=== PATIENT | female | born 1975 | race Caucasian/White ===

== ENCOUNTER 2018-02-04 09:01 | Emergency (ER) | payer OTHER ==
--- NOTE | 2018-02-04 09:34 | ED Physician Documentation ---
PD HPI UPPER EXT INJURY - Stated complaint Stated Complaint: SHOULDER PX - Chief complaint Chief Complaint: Ext Problem - History obtained from History obtained from: Patient - History of Present Illness Location: Right, Shoulder Type of injury: Other (Strenuous use.) Where injury occurred: Work Timing - onset: How many days ago (8) Timing - duration: Days (8) Timing - details: Still present Worsened by: Moving, Palpating Associated symptoms: No: Weakness, Numbness Similar symptoms before: Has not had sx before - Additonal information Additional information: The patient is a 42-year-old female 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 8 days ago she was pulling on a heavy medicine cart when she experienced pain in her shoulder. This morning she continues to experience "sharp, stabbing pain." She is right-hand dominant. She denies history of similar symptoms in the past. Review of Systems Constitutional: denies: Fever Nose: denies: Congestion Cardiac: denies: Chest pain / pressure Respiratory: denies: Dyspnea GI: denies: Nausea, Vomiting Skin: denies: Rash Musculoskeletal: reports: Joint pain (Right shoulder). denies: Neck pain, Back pain Neurologic: denies: Focal weakness, Numbness PD PAST MEDICAL HISTORY - Past Medical History Past Medical History: Yes Neuro: Other - Present Medications Home Medications: Ambulatory Orders Medication Instructions Recorded Confirmed Folic Acid 02/04/18 Hydrocodone/Acetaminophen [Vicodin 02/04/18 5-300 mg Tablet] Immun Globg(IgG)/Malt/Iga Ov50 02/04/18 02/04/18 [Octagam 5% Vial] Methotrexate 02/04/18 Metoprolol Tartrate 02/04/18 Naproxen [Naprosyn] 500 mg PO BID PRN #30 tablet 02/04/18 oxyCODONE ER [OxyCONTIN] 02/04/18 - Allergies Allergies/Adverse Reactions: Allergies Allergy/AdvReac Type Severity Reaction Status Date / Time Antihistamines - Alkylamine Allergy Unknown Verified 02/04/18 09:15 Antihistamines - Ethanolamine Allergy Unknown Verified 02/04/18 09:15 Antihistamines - Allergy Unknown Verified 02/04/18 09:15 Ethylenediamine Antihistamines - Piperazine Allergy Unknown Verified 02/04/18 09:15 Antihistamines - Piperidine Allergy Unknown Verified 02/04/18 09:15 decongestants Allergy Unknown Uncoded 02/04/18 09:16 IVP Dye Allergy Unknown Uncoded 02/04/18 09:16 - Social History Does the pt smoke?: No Smoking Status: Never smoker PD ED PE NORMAL - Vitals Vital signs reviewed: Yes (Initially hypertensive.) - General General: Alert and oriented X 3, Well developed/nourished - HEENT HEENT: Atraumatic - Neck Neck: No bony TTP - Respiratory Respiratory: No respiratory distress - Derm Derm: No rash - Extremities Extremities: No deformity, Other (There is tenderness to palpation over the anterior aspect of the right shoulder, along the excursion of the biceps tendon. She has full range of motion of the shoulder, but elevation and abduction exacerbates her discomfort. Distal neurovascular is intact.) - Neuro Neuro: Alert and oriented X 3, No motor deficit, No sensory deficit Results - Vitals Vitals: Vital Signs - 24 hr 02/04/18 09:12 Temperature 36.6 C Heart Rate 76 Respiratory 16 Rate Blood Pressure 145/101 H O2 Saturation 100 Oxygen O2 Source Room air - Rads (name of study) Right shoulder xray Radiology: Prelim report reviewed, EMP read contemporaneously, See rad report ( Normal shoulder radiography.) PD MEDICAL DECISION MAKING - ED course Complexity details: reviewed results, re-evaluated patient, considered differential, d/w patient, other (L&I form was completed.) ED course: The patient's presentation is most consistent with right biceps tendinitis. X- ray reveals no radiographic abnormality. Treatment in the emergency department included administration of a right arm sling. She is being discharged with prescription for Naprosyn. I discussed with her the diagnosis, symptomatic treatment and outpatient follow-up, as well as potentially worrisome signs or symptoms that should prompt reevaluation in the emergency department. An L&I form was completed. Departure - Departure Disposition: 01 Home, Self Care Clinical Impression: Biceps tendinitis of right shoulder Condition: Stable Instructions: Biceps Tendonitis Proximal Follow-Up: Smita Zuniga MD [Primary Care Provider] - Prescriptions: Naproxen [Naprosyn] 500 mg PO BID PRN #30 tablet PRN Reason: Pain Comments: Wear the arm sling if it provides comfort. You can use Naprosyn twice daily as prescribed if needed for pain. Let pain be her guide to activity level. Follow up with your primary physician within 1-2 weeks. Call to schedule appointment. Return to the emergency department if you develop increasing pain, or otherwise worsening symptoms.
--- NOTE | 2018-02-04 10:07 | XRAY Report ---
EXAM: RIGHT SHOULDER RADIOGRAPHY EXAM DATE: 02/04/2018 09:52 AM. CLINICAL HISTORY: Right shoulder injury, with pain anteriorly. COMPARISON: None. TECHNIQUE: 3 views. FINDINGS: Bones: Normal. No fracture or bone lesion. Joints: The glenohumeral and acromioclavicular joints are normal. Soft tissues: The visualized hemithorax is unremarkable. No soft tissue swelling. IMPRESSION: Normal shoulder radiography. [facility] Referring Provider Line: [phone] SITE ID: [id number]
--- NOTE | 2018-02-04 10:07 | XRAY Preliminary Report ---
Exam: XR SHOULDER 3 VIEW RT IMPRESSION: Normal shoulder radiography. [facility] SITE ID: [id number]
[2018-02-04 10:29] VITALS: BP 138/95
== END 2018-02-04 10:29 | disposition home or self-care (01) ==
LOC: ED 09:01
DX: M75.21 Bicipital tendinitis, right shoulder (principal); X50.0XXA Overexertion from strenuous movement or load, initial encounter; Y92.238 Other place in hospital as the place of occurrence of the external cause; Y99.0 Civilian activity done for income or pay
CPT/HCPCS: 1040M; 73030; 99283

== ENCOUNTER 2023-10-22 13:11 | Emergency (ER) | payer OTHER ==
[2023-10-22 13:22] VITALS: BP 120/90; O2SAT 97
--- NOTE | 2023-10-22 13:42 | ED Physician Documentation ---
History of Present Illness - Stated complaint Stated Complaint: C+ - Chief complaint Chief Complaint: General - History obtained from History obtained from: Patient - History of Present Illness Timing: Yesterday - Additonal information Additional information: 48-year-old female presents to the emergency department stating she developed cough, congestion yesterday. She states that she tested positive for COVID today. Called her doctor and was told that she needs a prescription for Paxlovid due to her other medical conditions. She states that they told her they had no appointments to see her so she needed to come to the ER for a prescription. Patient has no difficulty breathing. No vomiting. She does have a headache, 4 out of 10, gradual onset. No fevers. No chills. Review of Systems Constitutional: denies: Fever, Chills Nose: reports: Rhinorrhea / runny nose, Congestion : denies: Now EGA PD PAST MEDICAL HISTORY - Past Medical History Past Medical History: Yes - Past Surgical History Past Surgical History: Yes - Present Medications Home Medications: Ambulatory Orders Medication Instructions Recorded Confirmed Folic Acid 02/04/18 Hydrocodone/Acetaminophen [Vicodin 02/04/18 5-300 mg Tablet] Immun Globg(IgG)/Malt/Iga Ov50 02/04/18 02/04/18 [Octagam 5% Vial] Methotrexate [Methotrexate Sodium] 02/04/18 Metoprolol Tartrate 02/04/18 Naproxen [Naprosyn] 500 mg PO BID PRN #30 tablet 02/04/18 oxyCODONE ER [OxyCONTIN] 02/04/18 Nirmatrelvir/Ritonavir [Paxlovid 1 tab PO BID #10 tab 10/22/23 300-100 mg Dose Pack] - Allergies Allergies/Adverse Reactions: Allergies Allergy/AdvReac Type Severity Reaction Status Date / Time Antihistamines - Alkylamine Allergy Unknown Verified 10/22/23 13:15 Antihistamines - Ethanolamine Allergy Unknown Verified 10/22/23 13:15 Antihistamines - Allergy Unknown Verified 10/22/23 13:15 Ethylenediamine Antihistamines - Piperazine Allergy Unknown Verified 10/22/23 13:15 Antihistamines - Piperidine Allergy Unknown Verified 10/22/23 13:15 decongestants Allergy Unknown Uncoded 10/22/23 13:15 IVP Dye Allergy Unknown Uncoded 10/22/23 13:15 - Social History Does the pt smoke?: No Smoking Status: Never smoker Does the pt drink ETOH?: No Does the pt have substance abuse?: No - Immunizations Immunizations are current?: Yes PD ED PE NORMAL - Vitals Vital signs reviewed: Yes - General General: Alert and oriented X 3, No acute distress - HEENT HEENT: Moist mucous membranes - Neck Neck: Supple, no meningeal sign - Cardiac Cardiac: RRR, Strong equal pulses - Respiratory Respiratory: No respiratory distress, Clear bilaterally - Derm Derm: Warm and dry - Neuro Neuro: Alert and oriented X 3 Results - Vitals Vitals: Vital Signs - 24 hr 10/22/23 13:15 Temperature 36.5 C Heart Rate 110 H Respiratory 18 Rate Blood Pressure 120/90 H O2 Saturation 97 Oxygen O2 Source Room air PD Medical Decision Making - ED course Complexity details: considered differential, d/w patient ED course: 48-year-old female with an autoimmune condition, on methotrexate, not currently on prednisone. Does receive IVIG but is not going to receive it during her illness. She is requesting Paxlovid. She has no contraindications. No medication interactions. Paxlovid will be prescribed and she will follow-up with her doctor for further care. She is well-appearing, nontoxic. Afebrile. No hypoxia. No respiratory distress. Patient counseled regarding signs and symptoms for which I believe and urgent re-evaluation would be necessary. Patient with good understanding of and agreement to plan and is comfortable going home at this time This document was made in part using voice recognition software. While efforts are made to proofread this document, sound alike and grammatical errors may occur. Departure - Departure Disposition: 01 Home, Self Care Clinical Impression: COVID-19 Condition: Good Instructions: ED Viral Syndrome Follow-Up: your,doctor as needed [Other] Prescriptions: Nirmatrelvir/Ritonavir [Paxlovid 300-100 mg Dose Pack] 1 tab PO BID #10 tab Comments: Your prescription was sent to [facility] in [place]. Please take the Paxlovid as prescribed. Your list of medications does not appear to interact with the Paxlovid. Forms: PCP List
== END 2023-10-22 13:45 | disposition home or self-care (01) ==
LOC: ED 13:11
DX: U07.1 COVID-19 (principal); Z79.899 Other long term (current) drug therapy
CPT/HCPCS: 99282; 99283

== ENCOUNTER 2024-06-29 17:00 | Outpatient (CLI) | payer OTHER ==
[2024-06-29 17:27] LABS: HCT - HEMATOCRIT 31.4 % (37.0-47.0); MEAN CORPUSCULAR HGB CONC 31.8 g/dL (32.0-36.0); MEAN PLATELET VOLUME 10.5 fL (7.9-10.8); RED BLOOD COUNT 3.57 10^6/uL (4.20-5.40); RED CELL DISTRIBUTION WIDTH 16.4 % (12.0-15.0); WHITE BLOOD COUNT 5.8 x10^3/uL (4.8-10.8)
[2024-06-29 17:45] LABS: ALBUMIN 3.5 g/dL (3.2-5.5); ALBUMIN/GLOBULIN RATIO 1.1 (1.0-2.2); CALCIUM 8.9 mg/dL (8.5-10.3); CREATININE 1.1 mg/dL (0.6-1.3); TOTAL PROTEIN 6.8 g/dL (6.4-8.9)
== END 2024-06-29 23:59 | disposition home or self-care (01) ==
LOC: LAB.R 17:00
PROVIDERS: ATTEND Psychiatry & Neurology Neurology
DX: G61.81 Chronic inflammatory demyelinating polyneuritis (principal)
CPT/HCPCS: 80053; 85027